=== PATIENT | female | born 1995 | race Caucasian/White ===

== ENCOUNTER 2017-10-30 04:14 | Emergency (ER) | payer OTHER ==
[~2017-10-30] VITALS: Ht 160 cm; Wt 71.4 kg
[2017-10-30 04:20] VITALS: TEMP 36.7; Ht 160 cm; Wt 71.4 kg
[2017-10-30] MEDS ORDERED: ACETAMINOPHEN 500 MG TAB PO STA (04:27)
[2017-10-30] MEDS ORDERED: BCPILLS PO (05:36)
[2017-10-30] MEDS ORDERED: MTR/600 PO (05:41)
[2017-10-30] MEDS ORDERED: MELA1TAB5 PO (05:42)
--- NOTE | 2017-10-30 06:21 | EMERGENCY ROOM VISIT NOTE ---
History First contact with patient: 04:27 Chief Complaint: FALL Stated Complaint: NAUSEA,NUMBNESS IN FINGERS,PAIN IN HEAD,FALL /WORK History of Present Illness The patient is a 22 year old female who presents to the Emergency Room with complaints of head, neck and low back and right elbow pain after she slipped and fell at work. She states this is a work-related accident. She works at [employer]. She describes the pain as aching, ranging in severity 6 out of 10 worse with movement and better with rest. Patient denies loss of conscious, neck stiffness, weakness, chest pain, dyspnea, abdominal pain, leg pain. No prior fractures to these areas. Review of Systems See HPI for pertinent positives & negatives. A total of 10 systems reviewed and were otherwise negative. Past Medical/Surgical History None Social History Smoking Status: Never Smoker Smokeless Tobacco Use: No Drug Use: none Occupation Status: employed Current/Historical Medications Scheduled Control Pills ( Control Pills), 1 TAB PO DAILY Scheduled PRN Ibuprofen (Ibuprofen), 600-800 MG PO Q6H PRN for Pain Melatonin (Kp Melatonin), 1 TAB PO HS PRN for Insomnia Physical Exam Vital Signs Date Time Temp Pulse Resp B/P (MAP) Pulse Ox O2 Delivery O2 Flow Rate FiO2 10/30/17 05:44 95 20 113/71 98 Room Air 10/30/17 04:20 36.7 96 18 127/76 99 Room Air Physical Exam PHYSICAL EXAM: VITALS: Vitals are noted on the nurse's note and reviewed by myself. Vital signs stable. GENERAL: White female, in no acute distress, nondiaphoretic, well-developed well -nourished. SKIN: The skin was without obvious lacerations or abrasions. Capillary reflex less than 2 seconds. HEAD: Normocephalic atraumatic. EARS: External auditory canals clear, tympanic membranes pearly taylor without erythema or effusion bilaterally. No hemotympanums. No souza sign. No mastoid tenderness. EYES: Pupils equal round and reactive to light and accommodation. Conjunctivae without injection, sclerae without icterus. Extraocular movements intact. NOSE: Patent, turbinates without inflammation or discharge. No sinus tenderness. No septal hematoma or bleeding. FACE: No facial bone tenderness. Full range of motion of the jaw without tenderness. MOUTH: Mucous membranes moist. Pharynx without erythema or exudate. Uvula midline. Airway patent. Tongue does not deviate. NECK: Supple without nuchal rigidity. Cervical spine is diffusely tender to palpation and c-collar was placed. No JVD. HEART: Regular rate and rhythm without murmurs gallops or rubs. LUNGS: Clear to auscultation bilaterally without wheezes, rales or rhonchi. No dullness to percussion. No retractions or accessory muscle use. No chest wall tenderness. ABDOMEN: Positive bowel sounds x 4. Normal tympanic percussion. Soft, nontender, without masses or organomegaly. No guarding or rebound tenderness. MUSCULOSKELETAL: No tenderness of the thoracic spine. Diffuse tenderness of the lumbar spine without step-offs. No tenderness with pelvic rocking. Right elbow tender to palpation with no obvious deformity is increased pain with range of motion. Full range of motion without tenderness to palpation in all other extremities. Normal gait. Strength 5/5 throughout. NEURO: Patient was alert and oriented to person place and time. Normal Mini- Mental status exam. Normal sensation to light and sharp touch. Negative pronator drift. Cerebellar function intact. No focal neurological deficits. Medical Decision & Procedures Medications Administered Medications (Trade) Dose Ordered Sig/Emiliano Route Start Time Stop Time Status Last Admin Dose Admin Acetaminophen (Tylenol Tab) 1,000 mg NOW STAT PO 10/30/17 04:27 10/30/17 04:30 DC 10/30/17 04:42 1,000 MG ED Course Prior records/ancillary studies reviewed. Triage Nursing notes reviewed. Additional history obtained from friends. The patient's history was concerning for traumatic injury Differential diagnosis: Etiologies such as fracture, dislocation, intra-abdominal, pneumothorax, intrathoracic , intracranial, neurologic, as well as other traumatic pathologies were entertained. Physical examination findings: As above. The patients vitals were []. ER treatment provided: Tylenol On reassessment the patient felt better. Vital signs were stable. Diagnostic interpretation by me: Imaging studies: Elbow x-ray negative for fracture, effusion or dislocation per my interpretation CT HEAD: No ICH, mass effect or edema. No skull fracture. Radiologist: Jae Carney M.D. CT C SPINE: No evidence of acute or healing fracture or malalignment. No critical central canal stenosis or apical pneumothorax. Radiologist: Jae Carney M.D. CT L SPINE: No evidence of acute or healing fracture or malalignment. No critical central canal stenosis. No significant neural foraminal stenosis. No soft tissue hemorrhage or hematoma. Radiologist: Jae Carney M.D. This appears to be consistent with fall with muscle skeletal injuries and head injury. Patient was neurovascularly and neurologically intact. She had no fracture on the above imaging. She did not have acute abdomen on exam. She was ambulating without difficulties. She is tolerating fluids. She is advised to follow-up with her worker's comp doctor in a few days or here in the ER sooner for headache, fevers, weakness, worsening signs or symptoms or as needed. By the evaluation outlined above emergent etiologies such as fracture, dislocation, intra-abdominal, pneumothorax, pulmonary contusion, hemothorax, intracranial, neurologic,as well as others were deemed relatively unlikely. The pt informed about the findings as listed above. All questions were answered and pleased with the treatment. Return instructions were outlined and the patient was discharged in stable condition. Referral: The patient was referred to work-related injury doctor for follow-up in 2 to 3 days for a recheck of the current condition. Case reviewed with my attending Medical Decision As above Head Trauma GCS Score: 15 Medication Reconcilliation Current Medication List: was personally reviewed by me Blood Pressure Screening Patient's blood pressure: Normal blood pressure Impression Primary Impression: Fall Additional Impressions: Head injury Back injury Injury of right elbow Work related injury Departure Information Dispostion Home / Self-Care Condition GOOD Referrals No Doctor, Assigned (PCP) Patient Instructions My [facility] Additional Instructions Head injury: Read head injury handout and return for any symptoms. Tylenol 1000 mg as needed for pain (Maximum 3000 mg Tylenol in 24 hr period). Avoid alcohol and contact sports/activities for one week and follow up with family doctor prior to returning to these activities if still symptomatic. Ice and elevate head. If your symptoms persist more than a week then follow up with the concussion clinic. Call [phone]. Return to ER sooner for headache, fevers, confusion, worsening signs or symptoms or as needed. Back injury: Ibuprofen(Motrin, Advil) may be used for fever or pain. Use 600mg every six hours as needed. Take with food. Avoid using more than 2400mg in a 24 hour period. Do not use 2400mg per day for more than three consecutive days without physician direction. Prolonged inappropriate use can lead to stomach upset or ulcers. This medication can be taken if you need to drive, work, or perform activities which may be dangerous when taking narcotic pain medication. (AND/OR) Acetaminophen(Tylenol) may be used for fever or pain. Use 1000mg every six hours as needed. Avoid using more than 3000mg in a 24 hour period. This medication can be taken if you need to drive, work, or perform activities which may be dangerous when taking narcotic pain medication. Rest and avoid heavy lifting until your symptoms resolve and then gradually return to full activity. A good rule of thumb is if it hurts your back to perform a certain activity, then it should be avoided until you are healthy again. A heating pad, warm compresses, or a hot shower may help with tight muscles and can be done several times a day as needed. Continue current medications. Return to the ER immediately for any numbness, tingling, severe pain, loss of control of your bowels or bladder, inability to walk, or as needed. Follow up with your work-related injury doctor within 3-5 days for a recheck of your current condition. Problem Qualifiers Primary Impression: Fall Encounter type: initial encounter Qualified Codes: W19.XXXA - Unspecified fall, initial encounter Additional Impressions: Head injury Encounter type: initial encounter Qualified Codes: S09.90XA - Unspecified injury of head, initial encounter
[2017-10-30 06:27] VITALS: BP 110/66; PULSE 83; O2SAT 97
--- NOTE | 2017-10-30 06:37 | DIAGNOSTIC IMAGING REPORT ---
CT OF THE CERVICAL SPINE CLINICAL HISTORY: Neck pain status post trauma COMPARISON STUDY: No previous studies for comparison. CT DOSE: TECHNIQUE: CT scan of the cervical spine was performed from the skull base to the thoracic inlet. Images are reviewed in the axial, sagittal, and coronal planes. IV contrast was not administered for this examination. A dose lowering technique was utilized adhering to the principles of ALARA. FINDINGS: The visualized portions of the lung apices reveal no evidence of pneumothorax. The prevertebral soft tissues are normal. No fractures or subluxations are visualized. IMPRESSION: No evidence of acute fracture or traumatic subluxation. Electronically signed by: Steve Miranda M.D. 10/30/2017 6:35 AM Dictated Date/Time: 10/30/2017 6:34 AM
--- NOTE | 2017-10-30 07:21 | DIAGNOSTIC IMAGING REPORT ---
CT OF THE HEAD WITHOUT CONTRAST CLINICAL HISTORY: fall, pain COMPARISON STUDY: No previous studies for comparison. CT DOSE: 951.74 mGy.cm TECHNIQUE: Helical axial images of the head were obtained without IV contrast. Automated exposure control was utilized for the study. A dose lowering technique was utilized adhering to the principles of ALARA. FINDINGS: No acute intracranial hemorrhage, midline shift or mass effect is present. Ventricular system is normal. Basilar cisterns are patent. There are no extra-axial collections. Solitario-white differentiation is maintained. There is no calvarial fracture. There is mild mucosal thickening of the right sphenoid sinus. IMPRESSION: 1. No acute intracranial findings. 2. No calvarial fracture. Electronically signed by: Jeison Villar M.D. 10/30/2017 7:20 AM Dictated Date/Time: 10/30/2017 7:14 AM
--- NOTE | 2017-10-30 07:22 | DIAGNOSTIC IMAGING REPORT ---
R ELBOW MIN 3 VIEWS ROUTINE CLINICAL HISTORY: Right upper pain status post trauma COMPARISON: None. DISCUSSION: No fractures or dislocations are visualized. The fat pads are not displaced. IMPRESSION: No fractures or dislocations identified. Electronically signed by: Steve Miranda M.D. 10/30/2017 7:21 AM Dictated Date/Time: 10/30/2017 7:20 AM
--- NOTE | 2017-10-30 07:33 | DIAGNOSTIC IMAGING REPORT ---
CT SCAN OF THE LUMBAR SPINE WITHOUT IV CONTRAST CLINICAL HISTORY: Fall. Back pain. COMPARISON STUDY: No priors. TECHNIQUE: CT scan of the lumbar spine is performed from the lower thoracic spine to the sacrum. Images are reviewed in the axial, sagittal, and coronal planes. IV contrast was not administered for this examination. A dose lowering technique was utilized adhering to the principles of ALARA. CT DOSE: 520.84 mGy.cm FINDINGS: The skeletal structures are well mineralized. There is no evidence of fracture or malalignment involving the lumbar spine. Vertebral body height and alignment are maintained. The transverse and spinous processes appear intact. There is no evidence of spondylolysis. No lytic or blastic lesion is identified. The disc spaces appear maintained. A large posterior disc bulge is seen at L4-L5. This causes at least moderate central canal stenosis. The central canal is otherwise clear. No significant neural foraminal narrowing is suggested. There is a hemitransitional left lumbosacral segment. The visualized sacrum and bony pelvis appear intact. The paraspinous soft tissues are within normal limits. The retroperitoneal structures are normal as imaged. IMPRESSION: 1. There is no evidence of fracture or malalignment involving the lumbar spine. 2. There is a large posterior disc bulge at L4-L5. This causes at least moderate central canal stenosis. Dictated: 10/30/2017 7:02 AM Transcribed: 10/30/2017 7:33 AM [email or web address]_René Electronically signed by: Kashmir Newell M.D. 10/30/2017 7:37 AM Dictated Date/Time: 10/30/2017 7:02 AM
== END 2017-10-30 06:37 | disposition home or self-care (01) ==
LOC: C.EDB 04:19
DX: S09.90XA Unspecified injury of head, initial encounter (principal); S39.92XA Unspecified injury of lower back, initial encounter; S59.901A Unspecified injury of right elbow, initial encounter; Y99.0 Civilian activity done for income or pay; W19.XXXA Unspecified fall, initial encounter